=== PATIENT | female | born 1990 | race Caucasian/White ===

== ENCOUNTER 2016-09-29 23:36 | Emergency (ER) | payer OTHER ==
[~2016-09-29] VITALS: Ht 172.7 cm; Wt 99.8 kg
[~2016-09-29 23:36] MED LIST: AMOXICILLIN500 M3 PO; ANAPROX DS550 MG PO; ATARAX,VISTARIL50 MG PO; AUGMENTIN 875-875 MG PO; BACTRIM DS 8001 TAB PO; CATAFLAM50 MG PO; CLEOCIN150 MG PO; CLINDAMYCIN HC300 MG PO; DICYCLOMINE HCL20 MG PO; FOLIC ACID1 MG PO; HYDROCODONE BIT1 T11 PO; HYDROXYZINE PAM25 MG PO; HYDROXYZINE PAM50 MG PO; IBU800 M1 PO; LOMOTIL 0.025 M1 TA1 PO; Motrin,Rufen800 MG PO; NKHM; NKHM PO; ONDANSETRON4 MG PO; Orphenadrine C100 MG PO; PENICILLIN VK500 MG PO; PERCOCET 325 MG1 TA2 PO; ROBAXIN750 MG PO; SEROQUEL25 MG PO; SINEMET 25-100M1 TAB PO; SUBOXONE 8 MG-21 TA3 SL; THERA1 TAB PO; TRAZODONE50 MG PO; Tobrex Ophth S2.5 ML OPH; ULTRAM50 MG PO; VIBRA-TAB100 MG PO; VICODIN 5/500 505 MG PO; WYMOX500 MG PO; ZOFRAN ODT4 MG SL; ZOFRAN4 MG PO
[2016-09-30 00:15] LABS: BILIRUBIN NEGATIVE (NEGATIVE); BLOOD NEGATIVE (NEGATIVE); CLARITY SL CLOUDY (CLEAR); COLOR YELLOW (YELLOW); GLUCOSE NEGATIVE (NEGATIVE); KETONE NEGATIVE (NEGATIVE); LEUKO ESTERASE NEGATIVE (NEGATIVE); NITRITE NEGATIVE (NEGATIVE); PH 6.5 (5.0-9.0); PROTEIN NEGATIVE (NEGATIVE); SPECIFIC GRAVITY 1.015 (1.005-1.030)
[2016-09-30 00:24] LABS: BACTERIA 3+; EPITHELIAL CELLS 25-30; URINE REFLEX COMMENT YES (NO)
== END 2016-09-30 00:40 | disposition home or self-care (01) ==
LOC: ED 23:36
PROVIDERS: Registered Nurse
DX: O9A.212 Injury, poisoning and certain other consequences of external causes complicating pregnancy, second trimester (principal); S39.91XA Unspecified injury of abdomen, initial encounter; Z91.041 Radiographic dye allergy status; F12.10 Cannabis abuse, uncomplicated; F17.200 Nicotine dependence, unspecified, uncomplicated; V49.9XXA Car occupant (driver) (passenger) injured in unspecified traffic accident, initial encounter; Y93.89 Activity, other specified; Y92.413 State road as the place of occurrence of the external cause; Y99.9 Unspecified external cause status; Z3A.24 24 weeks gestation of pregnancy

== ENCOUNTER → 2016-10-27 | Outpatient (CLI) | payer OTHER ==
[2016-10-27 10:26] LABS: BASO % 0.1 % (0.0-1.0); EOS # 0.2 10*3/uL (0.0-0.4); EOS % 1.3 % (1.0-4.0); HEMATOCRIT 32.8 % (37.0-47.0); HEMOGLOBIN 10.9 g/dl (12.0-16.0); IG # 0.1 10*3/uL (0.0-0.1); LYMPH # 1.9 10*3/uL (1.3-4.4); LYMPH % 13.4 % (27.0-41.0); MEAN CELL VOLUME 90.6 fl (81.0-99.0); MEAN CORPUSCULAR HGB 30.1 pg (27.0-31.0); MEAN CORPUSCULAR HGB CONC 33.2 g/dl (33.0-37.0); MEAN PLATELET VOLUME 10.6 fl (9.6-12.3); MONO # 0.8 10*3/uL (0.1-1.0); MONO % 5.6 % (3.0-9.0); NEUT # 11.2 10*3/uL (2.3-7.9); PLATELET COUNT AUTOMATED 268 10*3/uL (130-400); RED BLOOD COUNT 3.62 10*6/uL (4.10-5.10); RED CELL DISTRI WIDTH 13.6 % (0-14.5); WHITE BLOOD COUNT 14.2 10*3/uL (4.8-10.8)
== END | disposition home or self-care (01) ==
LOC: LAB 09:57
PROVIDERS: Obstetrics & Gynecology
DX: Z34.93 Encounter for supervision of normal pregnancy, unspecified, third trimester (principal)

== ENCOUNTER 2016-12-17 07:17 | Emergency (ER) | payer OTHER ==
[~2016-12-17] VITALS: Ht 172.7 cm; Wt 111.6 kg
== END 2016-12-17 07:53 | disposition home or self-care (01) ==
LOC: ED 07:17
DX: O9A.213 Injury, poisoning and certain other consequences of external causes complicating pregnancy, third trimester (principal); S40.021A Contusion of right upper arm, initial encounter; F17.200 Nicotine dependence, unspecified, uncomplicated; Z91.041 Radiographic dye allergy status; Y08.89XA Assault by other specified means, initial encounter; Y93.89 Activity, other specified; Y92.9 Unspecified place or not applicable; Y99.9 Unspecified external cause status; Z3A.36 36 weeks gestation of pregnancy

== ENCOUNTER 2017-01-07 18:33 | Emergency (ER) | payer OTHER ==
[~2017-01-07] VITALS: Ht 175.2 cm; Wt 114.8 kg
== END 2017-01-07 19:06 | disposition left against medical advice (07) ==
LOC: ED 18:33
DX: O26.893 Other specified pregnancy related conditions, third trimester (principal); M54.9 Dorsalgia, unspecified; R10.9 Unspecified abdominal pain; Z91.041 Radiographic dye allergy status

== ENCOUNTER → 2017-01-29 | Outpatient (CLI) | payer OTHER ==
[2017-01-29 12:54] LABS: HEMATOCRIT 32.9 % (37.0-47.0); HEMOGLOBIN 10.8 g/dl (12.0-16.0); MEAN CELL VOLUME 88.2 fl (81.0-99.0); MEAN CORPUSCULAR HGB CONC 32.8 g/dl (33.0-37.0); MEAN PLATELET VOLUME 10.6 fl (9.6-12.3); RED BLOOD COUNT 3.73 10*6/uL (4.10-5.10); RED CELL DISTRI WIDTH 14.1 % (0-14.5); WHITE BLOOD COUNT 10.6 10*3/uL (4.8-10.8)
[2017-01-29 13:25] LABS: ALBUMIN 2.7 gm/dl (3.1-4.5); ALKALINE PHOSPHATASE 127 U/L (45-117); BUN 18 mg/dl (7-24); CHLORIDE 106 mmol/L (98-107); CHOLESTEROL 219 mg/dL (<200); CREATININE 0.67 mg/dL (0.55-1.02); HDL CHOLESTEROL 50 mg/dl (40-60); LDL CHOLESTEROL 104 mg/dL (9-159); POTASSIUM 4.3 mmol/L (3.5-5.1); SGOT/AST 73 IU/L (3-35); SGPT/ALT 79 U/L (12-78); SODIUM 137 mmol/L (136-145); TRIGLYCERIDES 324 mg/dl (<150); VLDL CHOLESTEROL 65 mg/dL (6-40)
[2017-01-30 05:11] LABS: HEPATITIS B SURFACE AG Negative (Negative)
[2017-01-30 06:13] LABS: HIV 1+2 AB + HIV1 P24 AG Non Reactive (Non Reactive)
[2017-01-30 13:04] LABS: HEPATITIS C VIRUS ANTIBODY >11.0 s/co (0.0-0.9)
[2017-01-31 17:10] LABS: HCV LOG10 6.474 (.); HEPATITIS C QNT 2980000 IU/mL (.)
== END | disposition home or self-care (01) ==
LOC: LAB 12:10
PROVIDERS: Family Medicine
DX: B19.20 Unspecified viral hepatitis C without hepatic coma (principal); E78.5 Hyperlipidemia, unspecified; R60.0 Localized edema; D64.9 Anemia, unspecified; E55.9 Vitamin D deficiency, unspecified; R53.81 Other malaise

== ENCOUNTER 2017-04-03 21:00 | Emergency (ER) | payer OTHER ==
[~2017-04-03] VITALS: Ht 172.7 cm; Wt 113.4 kg
[2017-04-03] MEDS ORDERED: FUROSEMIDE40 MG PO (21:09)
[2017-04-03] MEDS ORDERED: PRENATE DHA SO1 EAC1 PO (21:09)
[2017-04-03] MEDS ORDERED: CLINDAMYCIN HC300 MG PO (21:41)
== END 2017-04-03 21:30 | disposition home or self-care (01) ==
LOC: ED 21:00
DX: K08.89 Other specified disorders of teeth and supporting structures (principal); F17.200 Nicotine dependence, unspecified, uncomplicated; F12.10 Cannabis abuse, uncomplicated; Z91.041 Radiographic dye allergy status; Z79.899 Other long term (current) drug therapy

== ENCOUNTER 2017-06-06 13:03 | Emergency (ER) | payer OTHER ==
[~2017-06-06] VITALS: Ht 175.2 cm; Wt 113.4 kg
[~2017-06-06 13:03] MED LIST changes: +FUROSEMIDE40 MG PO; +PRENATE DHA SO1 EAC1 PO
[2017-06-06 14:08] LABS: BILIRUBIN NEGATIVE (NEGATIVE); BLOOD NEGATIVE (NEGATIVE); CLARITY CLEAR (CLEAR); COLOR YELLOW (YELLOW); GLUCOSE NEGATIVE (NEGATIVE); KETONE NEGATIVE (NEGATIVE); LEUKO ESTERASE NEGATIVE (NEGATIVE); NITRITE NEGATIVE (NEGATIVE); PH 5.5 (5.0-9.0); SPECIFIC GRAVITY >= 1.030 (1.005-1.030); UROBILINOGEN 0.2 E.U./dl (0.2-1.0)
[2017-06-06 14:30] LABS: EPITHELIAL CELLS 15-20; RBC 0-2 rbc/hpf (0-2)
[2017-06-06 14:31] LABS: BACTERIA TRACE; WBC 0-2 wbc/hpf (0-5)
== END 2017-06-06 14:50 | disposition home or self-care (01) ==
LOC: ED 13:03
PROVIDERS: Physician Assistant
DX: Z20.2 Contact with and (suspected) exposure to infections with a predominantly sexual mode of transmission (principal); F17.200 Nicotine dependence, unspecified, uncomplicated; Z91.018 Allergy to other foods; Z79.899 Other long term (current) drug therapy

== ENCOUNTER 2017-07-06 20:34 | Emergency (ER) | payer OTHER ==
[~2017-07-06] VITALS: Ht 175.2 cm; Wt 104.3 kg
== END 2017-07-06 21:03 | disposition left against medical advice (07) ==
LOC: ED 20:34
DX: S01.81XA Laceration without foreign body of other part of head, initial encounter (principal); M25.522 Pain in left elbow; M25.521 Pain in right elbow; F11.10 Opioid abuse, uncomplicated; F12.10 Cannabis abuse, uncomplicated; Y04.8XXA Assault by other bodily force, initial encounter; Y93.89 Activity, other specified; Y92.89 Other specified places as the place of occurrence of the external cause; Y99.8 Other external cause status

== ENCOUNTER 2017-12-11 08:36 | Emergency (ER) | payer OTHER ==
[~2017-12-11] VITALS: Ht 175.2 cm; Wt 99.8 kg
[2017-12-11 09:01] LABS: BASO % 0.1 % (0.0-1.0); EOS # 0.2 10*3/uL (0.0-0.4); EOS % 2.8 % (1.0-4.0); HEMATOCRIT 38.4 % (37.0-47.0); HEMOGLOBIN 12.5 g/dl (12.0-16.0); LYMPH # 2.4 10*3/uL (1.3-4.4); LYMPH % 32.8 % (27.0-41.0); MEAN CELL VOLUME 91.4 fl (81.0-99.0); MEAN CORPUSCULAR HGB 29.8 pg (27.0-31.0); MEAN CORPUSCULAR HGB CONC 32.6 g/dl (33.0-37.0); MONO # 0.5 10*3/uL (0.1-1.0); MONO % 6.6 % (3.0-9.0); NEUT # 4.1 10*3/uL (2.3-7.9); NEUT % 57.4 % (47.0-73.0); PLATELET COUNT AUTOMATED 202 10*3/uL (130-400); RED CELL DISTRI WIDTH 13.5 % (0-14.5); WHITE BLOOD COUNT 7.2 10*3/uL (4.8-10.8)
[2017-12-11 09:15] LABS: ALBUMIN 3.4 gm/dl (3.1-4.5); ALKALINE PHOSPHATASE 71 U/L (45-117); BUN 10 mg/dl (7-24); CHLORIDE 111 mmol/L (98-107); CREATININE 0.67 mg/dL (0.55-1.02); POTASSIUM 3.5 mmol/L (3.5-5.1); SGOT/AST 70 IU/L (3-35); SGPT/ALT 122 U/L (12-78); SODIUM 143 mmol/L (136-145); TOTAL PROTEIN 6.7 gm/dL (6.4-8.2)
[2017-12-11 09:28] LABS: BILIRUBIN NEGATIVE (NEGATIVE); BLOOD NEGATIVE (NEGATIVE); CLARITY CLEAR (CLEAR); COLOR YELLOW (YELLOW); GLUCOSE NEGATIVE (NEGATIVE); KETONE NEGATIVE (NEGATIVE); LEUKO ESTERASE NEGATIVE (NEGATIVE); NITRITE NEGATIVE (NEGATIVE); PH 5.5 (5.0-9.0); SPECIFIC GRAVITY >= 1.030 (1.005-1.030); UROBILINOGEN 0.2 E.U./dl (0.2-1.0)
[2017-12-11 09:35] LABS: MUCOUS 2+
[2017-12-11 09:36] LABS: URINE AMPHETAMINES < 1000 (1000ng/ml); URINE BARBITURATES < 200 (200ng/ml); URINE BENZODIAZEPINES < 200 (200ng/ml); URINE CANNABINOIDS (THC) > 50 (50ng/ml); URINE COCAINE < 300 (300ng/ml); URINE METHADONE < 300 (300ng/ml); URINE OPIATES < 300 (300ng/ml); URINE PHENCYCLIDINE < 25 (25ng/ml)
[2017-12-13 05:05] LABS: GONOCOCCUS BY NAA Negative (Negative)
== END 2017-12-11 10:40 | disposition home or self-care (01) ==
LOC: ED 08:36
PROVIDERS: Emergency Medicine
DX: R10.2 Pelvic and perineal pain (principal); N93.8 Other specified abnormal uterine and vaginal bleeding; F12.10 Cannabis abuse, uncomplicated; F17.200 Nicotine dependence, unspecified, uncomplicated; Z91.041 Radiographic dye allergy status; Z79.899 Other long term (current) drug therapy

== ENCOUNTER 2018-03-06 16:06 | Emergency (ER) | payer OTHER ==
[~2018-03-06] VITALS: Ht 175.2 cm; Wt 104.3 kg
[2018-03-06] MEDS ORDERED: ZYRTEC10 M3 PO (16:28)
[2018-03-06] MEDS ORDERED: PREDNISONE20 M1 PO (16:28)
[2018-03-06] MEDS ORDERED: Zofran4 MG SL (16:28)
[2018-03-06] MEDS ORDERED: AMOXICILLIN500 M3 PO (17:23)
== END 2018-03-06 17:50 | disposition home or self-care (01) ==
LOC: ED 16:06
DX: J06.9 Acute upper respiratory infection, unspecified (principal); J02.0 Streptococcal pharyngitis; K52.9 Noninfective gastroenteritis and colitis, unspecified; F17.200 Nicotine dependence, unspecified, uncomplicated; Z91.041 Radiographic dye allergy status; Z79.899 Other long term (current) drug therapy

== ENCOUNTER 2019-10-08 16:00 | Emergency (ER) | payer OTHER ==
[~2019-10-08] VITALS: Ht 175.2 cm
[~2019-10-08 16:00] MED LIST changes: +Bactroban Oint22 GM T; +CEPHALEXIN500 M1 PO; +PREDNISONE20 M1 PO; +ZYRTEC10 M3 PO; +Zofran4 MG SL
[2019-10-08 16:55] LABS: BILIRUBIN 1+ (NEGATIVE); BLOOD NEGATIVE (NEGATIVE); CLARITY CLEAR (CLEAR); COLOR YELLOW (YELLOW); GLUCOSE NEGATIVE (NEGATIVE); KETONE 2+ (NEGATIVE); LEUKO ESTERASE NEGATIVE (NEGATIVE); NITRITE NEGATIVE (NEGATIVE); PH 6.5 (5.0-9.0); SPECIFIC GRAVITY 1.015 (1.005-1.030); UROBILINOGEN 0.2 E.U./dl (0.2-1.0)
[2019-10-08 16:57] LABS: BACTERIA 1+; MUCOUS TRACE
== END 2019-10-08 17:11 | disposition home or self-care (01) ==
LOC: ED 16:00
PROVIDERS: Nurse Practitioner Family
DX: O26.852 Spotting complicating pregnancy, second trimester (principal); F17.200 Nicotine dependence, unspecified, uncomplicated; Z3A.22 22 weeks gestation of pregnancy; Z91.041 Radiographic dye allergy status; Z88.8 Allergy status to other drugs, medicaments and biological substances; Z79.899 Other long term (current) drug therapy

== ENCOUNTER 2019-11-06 22:34 | Emergency (ER) | payer OTHER ==
[~2019-11-06] VITALS: Ht 175.2 cm; Wt 113.9 kg
[2019-11-06 23:30] LABS: URINE AMPHETAMINES < 1000 (1000ng/ml); URINE BARBITURATES < 200 (200ng/ml); URINE BENZODIAZEPINES < 200 (200ng/ml); URINE CANNABINOIDS (THC) > 50 (50ng/ml); URINE COCAINE < 300 (300ng/ml); URINE METHADONE < 300 (300ng/ml); URINE OPIATES < 300 (300ng/ml)
[2019-11-06 23:31] LABS: URINE PHENCYCLIDINE < 25 (25ng/ml)
== END 2019-11-07 01:06 | disposition home or self-care (01) ==
LOC: ED 22:34
PROVIDERS: Internal Medicine
DX: O23.43 Unspecified infection of urinary tract in pregnancy, third trimester (principal); O26.893 Other specified pregnancy related conditions, third trimester; N76.0 Acute vaginitis; Z3A.28 28 weeks gestation of pregnancy

== ENCOUNTER 2019-11-13 21:54 | Emergency (ER) | payer OTHER ==
[~2019-11-13] VITALS: Ht 175.2 cm; Wt 118.8 kg
== END 2019-11-13 22:44 | disposition left against medical advice (07) ==
LOC: ED 21:54
DX: O26.891 Other specified pregnancy related conditions, first trimester (principal); Z3A.01 Less than 8 weeks gestation of pregnancy; Z53.21 Procedure and treatment not carried out due to patient leaving prior to being seen by health care provider

== ENCOUNTER → 2020-02-03 | Outpatient (CLI) | payer OTHER ==
[2020-02-03 15:08] LABS: HEMATOCRIT 38.9 % (37.0-47.0); MEAN CELL VOLUME 89.8 fl (81.0-99.0); MEAN CORPUSCULAR HGB 27.7 pg (27.0-31.0); MEAN CORPUSCULAR HGB CONC 30.8 g/dl (33.0-37.0); MEAN PLATELET VOLUME 9.6 fl (9.6-12.3); RED BLOOD COUNT 4.33 10*6/uL (4.10-5.10); RED CELL DISTRI WIDTH 13.2 % (0-14.5); WHITE BLOOD COUNT 11.6 10*3/uL (4.8-10.8)
[2020-02-03 15:40] LABS: ALBUMIN 3.1 gm/dl (3.1-4.5); BUN 17 mg/dl (7-24); CHLORIDE 108 mmol/L (98-107); CREATININE 0.68 mg/dL (0.55-1.02); POTASSIUM 4.3 mmol/L (3.5-5.1); SGOT/AST 52 IU/L (3-35); SGPT/ALT 73 U/L (12-78); SODIUM 139 mmol/L (136-145)
[2020-02-03 15:42] LABS: ALKALINE PHOSPHATASE 127 U/L (45-117); CHOLESTEROL 210 mg/dL (<200); HDL CHOLESTEROL 41 mg/dl (40-60); LDL CHOLESTEROL 106 mg/dL (9-159); TOTAL PROTEIN 7.3 gm/dL (6.4-8.2); TRIGLYCERIDES 316 mg/dl (<150); VLDL CHOLESTEROL 63 mg/dL (6-40)
[2020-02-03 15:45] LABS: VITAMIN D, 25-HYDROXY 28.8 ng/mL (30-100)
== END | disposition home or self-care (01) ==
LOC: LAB 13:50
PROVIDERS: ATTEND Family Medicine
DX: Z13.220 Encounter for screening for lipoid disorders (principal); O14.90 Unspecified pre-eclampsia, unspecified trimester; E55.9 Vitamin D deficiency, unspecified

== ENCOUNTER 2020-11-03 00:14 | Emergency (ER) | payer OTHER ==
[~2020-11-03] VITALS: Ht 175.2 cm; Wt 104.3 kg
[2020-11-03] MEDS ORDERED: NAPROSYN500 MG PO (02:26)
== END 2020-11-03 02:55 | disposition home or self-care (01) ==
LOC: ED 00:14
DX: S09.90XA Unspecified injury of head, initial encounter (principal); F41.1 Generalized anxiety disorder; R07.89 Other chest pain; F17.200 Nicotine dependence, unspecified, uncomplicated; Z88.8 Allergy status to other drugs, medicaments and biological substances; Z91.041 Radiographic dye allergy status; Z79.2 Long term (current) use of antibiotics; Z79.899 Other long term (current) drug therapy; V43.52XA Car driver injured in collision with other type car in traffic accident, initial encounter; Y93.I9 Activity, other involving external motion; Y92.488 Other paved roadways as the place of occurrence of the external cause; Y99.8 Other external cause status

== ENCOUNTER 2021-05-13 21:19 | Emergency (ER) | payer OTHER ==
[~2021-05-13] VITALS: Ht 175.2 cm; Wt 108.0 kg
[~2021-05-13 21:19] MED LIST changes: +NAPROSYN500 MG PO
[2021-05-13 23:37] LABS: BASO % 0.2 % (0.0-1.0); EOS # 0.1 10*3/uL (0.0-0.4); HEMATOCRIT 37.4 % (37.0-47.0); LYMPH # 1.1 10*3/uL (1.3-4.4); LYMPH % 12.7 % (27.0-41.0); MEAN CELL VOLUME 87.8 fl (81.0-99.0); MEAN CORPUSCULAR HGB 27.9 pg (27.0-31.0); MEAN CORPUSCULAR HGB CONC 31.8 g/dl (33.0-37.0); MEAN PLATELET VOLUME 9.7 fl (9.6-12.3); MONO # 0.4 10*3/uL (0.1-1.0); MONO % 4.8 % (3.0-9.0); NEUT # 7.2 10*3/uL (2.3-7.9); PLATELET COUNT AUTOMATED 235 10*3/uL (130-400); RED BLOOD COUNT 4.26 10*6/uL (4.10-5.10); WHITE BLOOD COUNT 8.9 10*3/uL (4.8-10.8)
[2021-05-13 23:55] LABS: ALBUMIN 3.7 gm/dl (3.1-4.5); ALKALINE PHOSPHATASE 55 U/L (45-117); BUN 13 mg/dl (7-24); CHLORIDE 109 mmol/L (98-107); CREATININE 0.68 mg/dL (0.55-1.02); POTASSIUM 4.1 mmol/L (3.5-5.1); SGOT/AST 16 IU/L (3-35); SGPT/ALT 39 U/L (12-78); SODIUM 139 mmol/L (136-145); TOTAL PROTEIN 7.4 gm/dL (6.4-8.2)
[2021-05-14] MEDS ORDERED: CEPHALEXIN500 M1 PO (01:49)
[2021-05-14] MEDS ORDERED: SEPTDS PO (01:49)
[2021-05-14] MEDS ORDERED: HYDROCODONE-AC1 EAC1 PO (01:52)
== END 2021-05-14 02:13 | disposition home or self-care (01) ==
LOC: ED 21:19
PROVIDERS: Emergency Medicine
DX: L02.415 Cutaneous abscess of right lower limb (principal); L02.416 Cutaneous abscess of left lower limb; H00.015 Hordeolum externum left lower eyelid; Z88.8 Allergy status to other drugs, medicaments and biological substances; Z79.899 Other long term (current) drug therapy

== ENCOUNTER 2021-08-11 13:05 | Inpatient (IN) | payer OTHER ==
[~2021-08-11] VITALS: Ht 175.2 cm; Wt 92.6 kg
[~2021-08-11 13:05] MED LIST changes: +HYDROCODONE-AC1 EAC1 PO; +SEPTDS PO
[2021-08-11 13:22] VITALS: BP 132/71
[2021-08-11 14:20] LABS: BASO % 0.3 % (0.0-1.0); EOS # 0.1 10*3/uL (0.0-0.4); EOS % 0.7 % (1.0-4.0); HEMATOCRIT 39.5 % (37.0-47.0); LYMPH # 1.5 10*3/uL (1.3-4.4); LYMPH % 21.3 % (27.0-41.0); MEAN CELL VOLUME 85.3 fl (81.0-99.0); MEAN CORPUSCULAR HGB 27.9 pg (27.0-31.0); MEAN CORPUSCULAR HGB CONC 32.7 g/dl (33.0-37.0); MEAN PLATELET VOLUME 9.7 fl (9.6-12.3); MONO # 0.3 10*3/uL (0.1-1.0); MONO % 4.5 % (3.0-9.0); NEUT # 5.2 10*3/uL (2.3-7.9); NEUT % 72.9 % (47.0-73.0); PLATELET COUNT AUTOMATED 237 10*3/uL (130-400); RED BLOOD COUNT 4.63 10*6/uL (4.10-5.10); RED CELL DISTRI WIDTH 13.4 % (0-14.5); WHITE BLOOD COUNT 7.1 10*3/uL (4.8-10.8)
[2021-08-11 14:34] LABS: ALKALINE PHOSPHATASE 59 U/L (45-117); BUN 9 mg/dl (7-24); CHLORIDE 109 mmol/L (98-107); CREATININE 0.59 mg/dL (0.55-1.02); POTASSIUM 4.1 mmol/L (3.5-5.1); SGOT/AST 11 IU/L (3-35); SGPT/ALT 30 U/L (12-78); SODIUM 139 mmol/L (136-145); TOTAL PROTEIN 7.6 gm/dL (6.4-8.2)
[2021-08-11 14:37] LABS: ACETAMINOPHEN (TYLENOL) < 5.0 ug/ml (10-30)
[2021-08-11 14:41] LABS: ETHYL ALCOHOL < 3.0 mg/dl (<3)
[2021-08-11 16:07] LABS: BILIRUBIN Negative (Negative); BLOOD Negative (Negative); CLARITY Cloudy (Clear); COLOR Yellow (Yellow); GLUCOSE Negative (Negative); KETONE 2+ (Negative); LEUKO ESTERASE Trace (Negative); NITRITE Negative (Negative); SPECIFIC GRAVITY 1.025 (1.001-1.030)
[2021-08-11 16:19] LABS: BACTERIA 1+; EPITHELIAL CELLS TNTC; MUCOUS 2+
[2021-08-11 16:21] LABS: URINE AMPHETAMINES > 1000 (1000ng/ml); URINE CANNABINOIDS (THC) > 50 (50ng/ml); URINE COCAINE < 300 (300ng/ml); URINE METHADONE < 300 (300ng/ml)
[2021-08-11 16:23] LABS: URINE BARBITURATES < 200 (200ng/ml); URINE BENZODIAZEPINES < 200 (200ng/ml); URINE OPIATES < 300 (300ng/ml)
[2021-08-11 16:24] LABS: URINE PHENCYCLIDINE < 25 (25ng/ml)
[2021-08-11 17:50] VITALS: BP 148/77
[2021-08-11 20:00] VITALS: BP 94/71
[2021-08-12] VITALS: BP 102/56
[2021-08-12] MEDS ORDERED: MELATONIN5 M7 PO (04:55)
[2021-08-12] MEDS ORDERED: BUPRENORPHINE-1 EACH SL (04:56)
[2021-08-12 08:00] VITALS: BP 114/51
[2021-08-12 12:00] VITALS: BP 106/44
== END 2021-08-12 17:18 | disposition left against medical advice (07) | DRG 770 ==
LOC: ED 13:05 → 4E 16:36 → EDHOLD 16:36 → 4E 17:22
PROVIDERS: Physician Assistant; ADMIT Internal Medicine; ATTEND Internal Medicine
DX: F11.23 Opioid dependence with withdrawal (principal); E44.0 Moderate protein-calorie malnutrition; F17.210 Nicotine dependence, cigarettes, uncomplicated; Z53.29 Procedure and treatment not carried out because of patient's decision for other reasons; F41.9 Anxiety disorder, unspecified; F15.10 Other stimulant abuse, uncomplicated; E66.9 Obesity, unspecified; E87.8 Other disorders of electrolyte and fluid balance, not elsewhere classified; B19.20 Unspecified viral hepatitis C without hepatic coma; F12.10 Cannabis abuse, uncomplicated; Z71.6 Tobacco abuse counseling; Z88.8 Allergy status to other drugs, medicaments and biological substances; Z79.899 Other long term (current) drug therapy; Z82.5 Family history of asthma and other chronic lower respiratory diseases; Z68.30 Body mass index [BMI] 30.0-30.9, adult

== ENCOUNTER 2021-09-24 09:40 | Emergency (ER) | payer OTHER ==
[~2021-09-24] VITALS: Ht 175.2 cm; Wt 96.2 kg
[~2021-09-24 09:40] MED LIST changes: +BUPRENORPHINE-1 EACH SL; +MELATONIN5 M7 PO
[2021-09-24 10:30] LABS: BASO % 0.2 % (0.0-1.0); EOS # 0.1 10*3/uL (0.0-0.4); EOS % 1.2 % (1.0-4.0); HEMATOCRIT 38.3 % (37.0-47.0); LYMPH # 1.5 10*3/uL (1.3-4.4); LYMPH % 14.2 % (27.0-41.0); MEAN CELL VOLUME 90.8 fl (81.0-99.0); MEAN CORPUSCULAR HGB 28.2 pg (27.0-31.0); MEAN CORPUSCULAR HGB CONC 31.1 g/dl (33.0-37.0); MEAN PLATELET VOLUME 9.7 fl (9.6-12.3); MONO # 0.5 10*3/uL (0.1-1.0); MONO % 5.1 % (3.0-9.0); NEUT # 8.1 10*3/uL (2.3-7.9); NEUT % 78.9 % (47.0-73.0); PLATELET COUNT AUTOMATED 240 10*3/uL (130-400); RED BLOOD COUNT 4.22 10*6/uL (4.10-5.10); RED CELL DISTRI WIDTH 13.5 % (0-14.5); WHITE BLOOD COUNT 10.2 10*3/uL (4.8-10.8)
[2021-09-24 10:45] LABS: ALKALINE PHOSPHATASE 67 U/L (45-117); BUN 16 mg/dl (7-24); CHLORIDE 108 mmol/L (98-107); CREATININE 0.74 mg/dL (0.55-1.02); POTASSIUM 3.9 mmol/L (3.5-5.1); SGOT/AST 29 IU/L (3-35); SGPT/ALT 56 U/L (12-78); SODIUM 137 mmol/L (136-145); TOTAL PROTEIN 7.2 gm/dL (6.4-8.2)
[2021-09-24 10:47] LABS: B-hCG (QUALITATIVE) NEGATIVE (NEGATIVE)
[2021-09-24 11:06] LABS: BILIRUBIN Negative (Negative); BLOOD 3+ (Negative); CLARITY Clear (Clear); COLOR Orange (Yellow); GLUCOSE Negative (Negative); KETONE Negative (Negative); LEUKO ESTERASE Trace (Negative); NITRITE Negative (Negative); PH 5.5 (4.5-8.0)
[2021-09-24 11:27] LABS: RBC TNTC rbc/hpf (0-2)
[2021-09-24 11:28] LABS: URINE AMPHETAMINES > 1000 (1000ng/ml); URINE BARBITURATES < 200 (200ng/ml); URINE BENZODIAZEPINES < 200 (200ng/ml); URINE CANNABINOIDS (THC) > 50 (50ng/ml); URINE COCAINE < 300 (300ng/ml); URINE METHADONE < 300 (300ng/ml); URINE OPIATES < 300 (300ng/ml)
[2021-09-24 11:29] LABS: BACTERIA 1+
[2021-09-24 11:30] LABS: URINE PHENCYCLIDINE < 25 (25ng/ml)
== END 2021-09-24 13:20 | disposition home or self-care (01) ==
LOC: ED 09:40
PROVIDERS: Emergency Medicine
DX: N23 Unspecified renal colic (principal); F15.10 Other stimulant abuse, uncomplicated